=== PATIENT | male | born 1960 | race African-American/Black ===

== ENCOUNTER 2018-05-09 04:24 | Emergency (ER) | payer OTHER ==
[~2018-05-09] VITALS: Ht 175.3 cm; Wt 84.8 kg
--- NOTE | 2018-05-09 04:40 | NUR ---
PT. ODESSA FOR MEDICAL CLEARANCE TO [facility]. A/O X 4. ON ROOM AIR WT NO ACUTE DISTRESS, NO C/O PAIN. AMBULATORY WT STEADY GAIT. AWAITING MD EXAMINATION. SAFETY PRECAUTION NOTED.
--- NOTE | 2018-05-09 04:50 | NUR ---
DR. JOE AT BEDSIDE TO EVALUATE PT WT LAB ORDERS.
--- NOTE | 2018-05-09 05:24 | NUR ---
LAB AT BEDSIDE FOR BLOOD DRAW
[2018-05-09 05:46] LABS: BASOPHILS % (AUTO) 0.5 % (0.0-2.0); EOSINOPHILS % (AUTO) 6.2 % (0.0-6.0); HEMATOCRIT 38 % (39-51); HEMOGLOBIN 12.5 g/dL (13.5-17.5); LYMPHOCYTES # (AUTO) 1.4 /CMM (0.8-4.8); LYMPHOCYTES % (AUTO) 19.5 % (20.0-44.0); MEAN CORPUSCULAR HGB CONC 33 g/dl (31.0-36.0); MEAN CORPUSCULAR VOLUME 96 fL (80-96); MONOCYTES # (AUTO) 0.6 /CMM (0.1-1.30); MONOCYTES % (AUTO) 8.2 % (2.0-12.0); NEUTROPHILS # (AUTO) 4.7 /CMM (1.8-8.9); NEUTROPHILS % (AUTO) 65.6 % (43.0-81.0); PLATELET COUNT (AUTO) 302 /CMM (150-450); RDW COEFFICIENT OF VARIATION 15.1 (11.5-15.0); RED BLOOD CELL COUNT(AUTO) 3.99 MIL/uL (4.5-6.0); WHITE BLOOD COUNT (AUTO) 7.2 K/uL (4.3-11.0)
[2018-05-09 05:57] LABS: CALCIUM, SERUM 8.5 mg/dL (8.5-10.1); CARBON DIOXIDE 32 mmol/L (21-32); CHLORIDE 102 mmol/L (98-107); CREATININE 0.9 mg/dL (0.6-1.3); GLUCOSE 117 mg/dL (74-106); POTASSIUM 3.5 mmol/L (3.5-5.1); SODIUM SERUM 138 mmol/L (136-145); UREA NITROGEN, BLOOD 9 mg/dL (7-18)
--- NOTE | 2018-05-09 06:04 | NUR ---
PER [facility] INTAKE FROM [facility], AVAILABLE BED FOR PT.
[2018-05-09 06:07] LABS: ALANINE AMINOTRANSFERASE 58 U/L (12-78); ALBUMIN 3.1 g/dL (3.4-5.0); ALKALINE PHOSPHATASE 119 U/L (46-116); ASPARTATE AMINOTRANSFERASE 51 U/L (15-37); BILIRUBIN,TOTAL 0.1 mg/dL (0.2-1.0); TOTAL PROTEIN, SERUM 6.8 g/dL (6.4-8.2)
[2018-05-09 06:08] LABS: ALCOHOL, BLOOD < 3 mg/dL (0-0)
[2018-05-09 06:14] LABS: APPEARANCE,URINE CLEAR (CLEAR); BILIRUBIN,URINE NEGATIVE (NEGATIVE); BLOOD, URINE NEGATIVE Ery/uL (NEGATIVE); COLOR,URINE YELLOW (YELLOW); KETONES,URINE NEGATIVE (NEGATIVE); LEUKOCYTE ESTERASE ,URINE NEGATIVE (NEGATIVE); NITRITE, URINE NEGATIVE (NEGATIVE); PROTEIN,URINE NEGATIVE (NEGATIVE); UGLUCOSE NEGATIVE (NEGATIVE); UROBILINOGEN,URINE 0.2 EU/dL (0.2)
[2018-05-09] MEDS ORDERED: MAG HYDROX/AL HYDROX/SIMETH 30 ML UDC PO ONE (06:30)
[2018-05-09] MEDS ORDERED: MAG HYDROX/AL HYDROX/SIMETH 30 ML UDC ONE (06:33)
--- NOTE | 2018-05-09 06:41 | NUR ---
FAXED CLINICALS TO [facility] INTAKE
--- NOTE | 2018-05-09 07:20 | NUR ---
[facility] CALLED FOR BREAKFAST
--- NOTE | 2018-05-09 08:24 | NUR ---
PT ACCEPTED TO [facility] BY DR. FAITH NUMBER FOR REPORT IS [phone]
[2018-05-09 08:46] VITALS: BP 137/80
--- NOTE | 2018-05-09 08:47 | NUR ---
pt sleeping in semi-fowlers position. Easily arousable. Alert and oriented X 4. Vital signs taken. No respiratory distres noted. Pt up and back to the bathroom. Medically clear. Awaiting transfer to [place] the [facility]. Will continue to monitor.
--- NOTE | 2018-05-09 09:20 | NUR ---
CALLED FOR RN REPORT SPOKE DANISHA ROSALES AT [facility] EXT:[phone] TRANSPORTATION CALLED
--- NOTE | 2018-05-09 09:45 | NUR ---
BREAKFAST TRAY ORDERED OFFERED QUIRINO PT REFUSED [facility] AND [facility] NOT HERE YET
--- NOTE | 2018-05-09 09:50 | NUR ---
[facility] CALLED. ETA 11 MINS.
--- NOTE | 2018-05-09 09:53 | NUR ---
[facility] CALLED BACK. STATES ETA IS 1130.
--- NOTE | 2018-05-09 11:19 | NUR ---
PT REFUSED VITAL SIGNS
== END 2018-05-09 11:41 ==
LOC: ER 04:29
DX: Z04.6 Encounter for general psychiatric examination, requested by authority (principal); I10 Essential (primary) hypertension; F31.9 Bipolar disorder, unspecified; F20.9 Schizophrenia, unspecified; F10.10 Alcohol abuse, uncomplicated; F17.200 Nicotine dependence, unspecified, uncomplicated; Y90.0 Blood alcohol level of less than 20 mg/100 ml; Z59.0 Homelessness; Z88.8 Allergy status to other drugs, medicaments and biological substances; Z88.9 Allergy status to unspecified drugs, medicaments and biological substances
CPT/HCPCS: 36415; 80048; 80076; 80305; 81001; 85025; 99285; A4606; G0480; Z7610; 81000-TC

== ENCOUNTER 2019-11-19 23:56 | Emergency (ER) | payer OTHER ==
[~2019-11-19] VITALS: Ht 175.3 cm; Wt 83.9 kg
--- NOTE | 2019-11-20 00:33 | NUR ---
[facility] C/O SUICIDAL IDEATION WITH PLAN TO RUN INTO TRAFFIC. PT AAOX4. RESPIRATIONS EVEN AND UNLABORED. SKIN INTACT. AMBULATORY WITH STEADY GAIT. NO ACUTE DISTRESS NOTED AT THIS TIME. PT PLACED IN GOWN, BELONGINGS COLLECTED AND PLACED IN PATIENT LOCKER. SECURITY AT BEDSIDE FOR WANDING. WILL CONTINUE TO MONITOR
[2019-11-20 00:51] LABS: BASOPHILS # (AUTO) 0.1 /CMM (0.0-0.2); BASOPHILS % (AUTO) 0.8 % (0.0-2.0); EOSINOPHILS % (AUTO) 5.8 % (0.0-6.0); HEMATOCRIT 38 % (39-51); HEMOGLOBIN 12.7 g/dL (13.5-17.5); LYMPHOCYTES # (AUTO) 1.8 /CMM (0.8-4.8); LYMPHOCYTES % (AUTO) 28.4 % (20.0-44.0); MEAN CORPUSCULAR HGB CONC 33 g/dl (31.0-36.0); MEAN CORPUSCULAR VOLUME 94 fL (80-96); MONOCYTES # (AUTO) 0.8 /CMM (0.1-1.30); MONOCYTES % (AUTO) 13.3 % (2.0-12.0); NEUTROPHILS # (AUTO) 3.3 /CMM (1.8-8.9); NEUTROPHILS % (AUTO) 51.7 % (43.0-81.0); PLATELET COUNT (AUTO) 294 /CMM (150-450); RED BLOOD CELL COUNT(AUTO) 4.08 MIL/uL (4.5-6.0); WHITE BLOOD COUNT (AUTO) 6.3 K/uL (4.3-11.0)
[2019-11-20 01:09] LABS: CALCIUM, SERUM 8.3 mg/dL (8.5-10.1); CARBON DIOXIDE 32 mmol/L (21-32); CHLORIDE 103 mmol/L (98-107); GLUCOSE 108 mg/dL (74-106); POTASSIUM 3.6 mmol/L (3.5-5.1); SODIUM SERUM 140 mmol/L (136-145); UREA NITROGEN, BLOOD 17 mg/dL (7-18)
[2019-11-20 01:16] LABS: ALANINE AMINOTRANSFERASE 38 U/L (12-78); ALBUMIN 3.1 g/dL (3.4-5.0); ALCOHOL, BLOOD < 3 mg/dL (0-0); ALKALINE PHOSPHATASE 138 U/L (46-116); ASPARTATE AMINOTRANSFERASE 30 U/L (15-37); BILIRUBIN,TOTAL 0.1 mg/dL (0.2-1.0)
[2019-11-20 01:18] LABS: ACETAMINOPHEN 0 ug/ml (10-30); SALICYLATE 0.9 mg/dL (2.8-20.0)
[2019-11-20 02:02] LABS: APPEARANCE,URINE Clear (CLEAR); BILIRUBIN,URINE Negative (NEGATIVE); BLOOD, URINE Negative Ery/uL (NEGATIVE); COLOR,URINE Yellow (YELLOW); KETONES,URINE Trace (NEGATIVE); LEUKOCYTE ESTERASE ,URINE Negative (NEGATIVE); NITRITE, URINE Negative (NEGATIVE); PROTEIN,URINE Negative (NEGATIVE); UGLUCOSE Negative (NEGATIVE); UROBILINOGEN,URINE 0.2 EU/dL (0.2)
[2019-11-20 02:23] LABS: BACTERIA,URINE None seen /HPF (None Seen); RBC,URINE 0-2 /HPF (0-2); SQUAMOUS EPITHELIAL CELL,UR Few /HPF (None Seen)
[2019-11-20 02:24] LABS: CALCIUM OXALATE CRYSTALS,UR Few /HPF (None Seen)
--- NOTE | 2019-11-20 03:49 | NUR ---
PATIENT IS AWAKE. PATIENT ASKED, "CAN YOU GET ME A URINAL?" PATIENT GIVEN URINAL. BREATHING WITH NO DISTRESS. CONNECTED TO MONITOR. SITTER AT BEDSIDE.
--- NOTE | 2019-11-20 06:29 | NUR ---
Pt accepted to [facility] by Dr Stack. # for report [phone]
--- NOTE | 2019-11-20 06:44 | NUR ---
[facility] called for transport. ETA 0815. #[id number]
--- NOTE | 2019-11-20 07:00 | NUR ---
REPORT GIVEN TO FAB BONILLA FROM [facility] FOR [facility]
[2019-11-20 09:44] VITALS: BP 145/81
--- NOTE | 2019-11-20 09:44 | NUR ---
patient refused to go to so [facility] made aware and verbalized that he is not suicidal anymore. Tap card and food provided. signed homeless form, senior living resources given. denies any pain or discomfort at this time, nor chest pain. Ambulate well, with appropriate clothing.
== END 2019-11-20 09:44 | disposition home or self-care (01) ==
LOC: ER 23:59
DX: R45.851 Suicidal ideations (principal); F15.10 Other stimulant abuse, uncomplicated; I10 Essential (primary) hypertension; F31.9 Bipolar disorder, unspecified; F20.9 Schizophrenia, unspecified; Z88.8 Allergy status to other drugs, medicaments and biological substances; Z88.6 Allergy status to analgesic agent; Z59.0 Homelessness
CPT/HCPCS: 36415; 80048; 80076; 80305; 80307; 80329; 81001; 85025; 99285; G0480; 81000-TC

== ENCOUNTER 2025-08-02 21:38 | Emergency (ER) | payer MEDICARE, OTHER ==
[~2025-08-02] VITALS: Ht 175.3 cm; Wt 81.6 kg
[2025-08-02 22:16] VITALS: BP 160/100; TEMP 98.2; O2SAT 97
[2025-08-02 23:18] LABS: CALCIUM, SERUM 8.3 mg/dL (8.5-10.1); CREATININE 0.8 mg/dL (0.6-1.3); SODIUM SERUM 142 mmol/L (136-145); UREA NITROGEN, BLOOD 16 mg/dL (7-18)
[2025-08-02 23:35] LABS: ASPARTATE AMINOTRANSFERASE 20 U/L (15-37); TOTAL PROTEIN, SERUM 7.6 g/dL (6.4-8.2)
[2025-08-02 23:36] LABS: ALCOHOL, BLOOD < 3 mg/dL (0-10)
== END 2025-08-03 01:42 | disposition left against medical advice (07) ==
LOC: ER 21:39
DX: F32.A Depression, unspecified (principal); I10 Essential (primary) hypertension; F20.9 Schizophrenia, unspecified; F17.200 Nicotine dependence, unspecified, uncomplicated; Z59.00 Homelessness unspecified; Z88.8 Allergy status to other drugs, medicaments and biological substances
CPT/HCPCS: 36415; 80048-TC; 80076-TC; G0480